=== PATIENT | female | born 1960 | race Caucasian/White ===

== ENCOUNTER 2018-01-09 15:31 | Emergency (ER) | payer OTHER ==
[2018-01-09] MEDS: DIPHTH,PERTUSS(ACELL),TET TOX 0.5 ML DISP.SYRIN. VAX IM (16:25)
== END 2018-01-09 16:41 | disposition home or self-care (01) ==
LOC: ER 15:31
DX: L03.116 Cellulitis of left lower limb (principal); I10 Essential (primary) hypertension; E11.9 Type 2 diabetes mellitus without complications
CPT/HCPCS: 90471; 90715; 99283-25

== ENCOUNTER 2020-11-02 11:52 | Emergency (ER) | payer OTHER ==
[~2020-11-02] VITALS: Ht 154.9 cm; Wt 100.0 kg
[~2020-11-02 11:52] MED LIST: ATOR20TA58 PO; CLIN150C15 PO; INSU100V8 SQ; LISI10TA16 PO; METF500T PO; OMEP20TA63 PO; PIOG15TA42 PO; PIRO20CA PO; SITA100T PO
[2020-11-02 12:25] VITALS: BP 130/68
[2020-11-02] MEDS ORDERED: LIDOCAINE 1% Multi-Dose 20 ML VIAL. INJ ONE (13:00)
[2020-11-02] MEDS ORDERED: CHLO15MO2 PO (13:39)
--- NOTE | 2020-11-02 13:39 | PHYS DOC ---
Past Medical History Past Medical History: Asthma, Diabetes-Type II, Hypertension Past Surgical History: , Hysterectomy Smoking Status: Never Smoker Alcohol Use: Occasionally Drug Use: None General Adult EDM: Chief Complaint: DENTAL PROBLEM HPI: HPI: Patient is a 59 year old Female who presents with right lower mouth facial abscess that is hard and swollen is about quarter sized with slight redness to the outside of the face just to the abscess area. This has been going on since this past Wednesday. She denies fever, dizziness, headache. Patient does have several broken teeth, several missing teeth and dental caries. She states she needs to have them all completely removed. She states she does not have a dentist. She rates her pain a 10 out of 10 throbbing pain at this time. Review of Systems: Review of Systems: Constitutional: Denies fever or chills. [] Eyes: Denies change in visual acuity. [] HENT: Denies nasal congestion or sore throat. +Dental abscess, +many dental caries, + dental pain [] Respiratory: Denies cough or shortness of breath. [] Cardiovascular: Denies chest pain or edema. [] GI: Denies abdominal pain, nausea, vomiting, bloody stools or diarrhea. [] : Denies dysuria. [] Musculoskeletal: Denies back pain or joint pain. [] Integument: Denies rash. +Dental abscess with pink circular over where the abscess is to the outer right lower cheek [] Neurologic: Denies headache, focal weakness or sensory changes. [] Endocrine: Denies polyuria or polydipsia. [] Lymphatic: Denies swollen glands. [] Psychiatric: Denies depression or anxiety. [] Heart Score: C/O Chest Pain: No Risk Factors: Risk Factors: DM, Current or recent (<one month) smoker, HTN, HLP, family history of CAD, obesity. Risk Scores: Score 0 - 3: 2.5% MACE over next 6 weeks - Discharge Home Score 4 - 6: 20.3% MACE over next 6 weeks - Admit for Clinical Observation Score 7 - 10: 72.7% MACE over next 6 weeks - Early Invasive Strategies Current Medications: Current Medications Medications (Trade) Dose Ordered Sig/Altagracia Start Time Stop Time Status Last Admin Dose Admin Lidocaine HCl (Lidocaine 1% 20ml Vial) 20 ml 1X ONCE 11/02/20 13:00 11/02/20 13:03 DC 11/02/20 13:10 20 ML Allergies: Allergies: Allergies Coded Allergies Type Severity Reaction Last Updated Verified No Known Drug Allergies 01/09/18 No Physical Exam: PE: Constitutional: Well developed, well nourished, no acute distress, non-toxic appearance. [] HENT: Normocephalic, atraumatic, bilateral external ears normal, oropharynx moist, no oral exudates, nose normal. Many missing, broken and dental caries. gumline reddened. No drainage seen inside the mouth. [] Eyes: PERRLA, EOMI, conjunctiva normal, no discharge. [] Neck: Normal range of motion, no tenderness, supple, no stridor. [] Cardiovascular:Heart rate regular rhythm, no murmur [] Lungs & Thorax: Bilateral breath sounds clear to auscultation [] Abdomen: Bowel sounds normal, soft, no tenderness, no masses, no pulsatile masses. [] Skin: Warm, dry, no erythema, no rash. Reddened circular area size of a quarter to the outside of the right lower cheek with a dental abscess is located. Tenderness. [] Back: No tenderness, no CVA tenderness. [] Extremities: No tenderness, no cyanosis, no clubbing, ROM intact, no edema. [] Neurologic: Alert and oriented X 3, normal motor function, normal sensory function, no focal deficits noted. [] Psychologic: Affect normal, judgement normal, mood normal. [] Current Patient Data: Vital Signs: Vital Signs Date Time Temp Pulse Resp B/P (MAP) Pulse Ox O2 Delivery O2 Flow Rate FiO2 11/02/20 12:25 98.1 100 130/68 (88) 98.1 11/02/20 11:55 22 Room Air EKG: EKG: [] Radiology/Procedures: Radiology/Procedures: [] Course & Med Decision Making: Course & Med Decision Making Pertinent Labs and Imaging studies reviewed. (See chart for details) See HPI. Alert and oriented x4. Speaks in full clear sentences. No trismus. Afebrile. Skin pink warm and dry except for what was described in the HPI. The pink area over the abscess to the outer right lower cheek in a circular shape is present. Abscess is hard and tender. I have ordered lidocaine. Dr. Ludmila to perform I&D to drain the abscess. Patient will be sent home on antibiotics. I will also give her dental resources. She is nonseptic appearing. I&D Location: Lower right inner mouth Anesthesia: 1% lidocaine Scalpel size: #11 Skin: [place] to the outside no cellulitis to the inside of the mucosa Drainage: Purulent Packing: None Patient tolerated the procedure well with no complications. The area was prepped and draped in usual sterile fashion. Area was cleaned with chloehexidine prior to procedure. Return for signs and symptoms of infection education given. Patient to return in 48 hours for wound recheck. [] Dragon Disclaimer: Dragon Disclaimer: This electronic medical record was generated, in whole or in part, using a voice recognition dictation system. Departure Departure Impression: Primary Impression: Dental abscess Additional Impression: Facial swelling Disposition: HOME SELF CARE/HOMELESS Condition: STABLE Referrals: UNKNOWN PCP NAME (PCP) Patient Instructions: Dental Abscess, Dental Caries Additional Instructions: Follow-up with a dentist as soon as possible. Take medication as prescribed and with food. Take medication as prescribed and with food. Remember pain medication will make you sleepy. Scripts Hydrocodone Bit/Acetaminophen (HYDROCODONE-APAP 5-325 ) 1 Tab Tablet 1 TAB PO PRN Q6HRS PRN for PAIN, #15 TAB 0 Refills Prov: ELIZABETH RICHARD SLURRY MAN 11/02/20 Amoxicillin/Potassium Clav (AUGMENTIN 875-125 TABLET) 1 Each Tablet 1 TAB PO BID for 10 Days, #20 TAB 0 Refills Prov: ELIZABETH RICHARD SLURRY MAN 11/02/20 Chlorhexidine Gluconate (PERIDEX) 15 Ml Mouthwash 15-30 ML PO TID for 8 Days, #473 ML 0 Refills Prov: ELIZABETH RICHARD SLURRY MAN 11/02/20 ELIZABETH RICHARD APRN Nov 02, 2020 13:39
[2020-11-02] MEDS ORDERED: AMOX1TAB61 PO (13:47)
[2020-11-02] MEDS ORDERED: HYDR-2761 PO (13:47)
[2020-11-02] MEDS ORDERED: HYDROcodone/APAP 5/325MG 1 TAB TABLET PO ONE (14:15)
== END 2020-11-02 15:15 | disposition home or self-care (01) ==
LOC: ER 11:52
DX: K04.7 Periapical abscess without sinus (principal); E11.9 Type 2 diabetes mellitus without complications; I10 Essential (primary) hypertension; J45.909 Unspecified asthma, uncomplicated
CPT/HCPCS: 41800; 99284; J3490

== ENCOUNTER 2021-02-10 14:13 | Emergency (ER) | payer OTHER ==
[~2021-02-10] VITALS: Ht 154.9 cm; Wt 90.9 kg
[~2021-02-10 14:13] MED LIST changes: +AMOX1TAB61 PO; +CHLO15MO2 PO; +HYDR-2761 PO
[2021-02-10] MEDS ORDERED: NAPROXEN 500 MG TABLET PO STA (16:11)
[2021-02-10] MEDS ORDERED: CYCLOBENZAPRINE 10 MG TABLET. PO ONE (16:15)
[2021-02-10] MEDS ORDERED: HYDROcodone/APAP 5/325MG 1 TAB TABLET PO ONE (16:15)
[2021-02-10] MEDS ORDERED: CYCL10TA2 PO (16:33)
[2021-02-10] MEDS ORDERED: HYDR-2761 PO ×2 (16:33→16:39)
[2021-02-10] MEDS ORDERED: IBUP-1007 PO (16:33)
--- NOTE | 2021-02-10 16:37 | PHYS DOC ---
Past Medical History Past Medical History: Asthma, Diabetes-Type II, Hypertension Past Surgical History: , Hysterectomy Smoking Status: Former Smoker Alcohol Use: Occasionally Drug Use: None General Adult EDM: Chief Complaint: BACK PAIN OR INJURY HPI: HPI: Patient is a 60 year old female with history of diabetes type 2, hypertension, asthma, arthritis, who presents to the ED today complaining of 10 out of 10 chronic sharp bilateral knee pain, low back pain. Patient states symptoms are intermittent. She states she went today to see the orthopedic doctor and did not have a Medicaid card so they sent her to the ED to be evaluated. Patient states she is out of her pain medicine. Denies any trauma. Denies any numbness or tingling to bilateral lower extremity but expresses pain radiating to the right lower extremity that she states is chronic. States the pain is worse on ambulation. Review of Systems: Review of Systems: Constitutional: Denies fever or chills. [] : Denies dysuria. [] Musculoskeletal: Reports bilateral low back pain radiating to the right lower extremity, lateral knee pain Integument: Denies rash. [] Neurologic: Denies headache, focal weakness or sensory changes. [] Psychiatric: Denies depression or anxiety. [] Heart Score: C/O Chest Pain: N/A Risk Factors: Risk Factors: DM, Current or recent (<one month) smoker, HTN, HLP, family history of CAD, obesity. Risk Scores: Score 0 - 3: 2.5% MACE over next 6 weeks - Discharge Home Score 4 - 6: 20.3% MACE over next 6 weeks - Admit for Clinical Observation Score 7 - 10: 72.7% MACE over next 6 weeks - Early Invasive Strategies Current Medications: Current Medications Medications (Trade) Dose Ordered Sig/Altagracia Start Time Stop Time Status Last Admin Dose Admin Acetaminophen/ Hydrocodone Bitart (Lortab 5/325) 1 tab 1X ONCE 02/10/21 16:15 02/10/21 16:16 DC Cyclobenzaprine HCl (Flexeril) 10 mg 1X ONCE 02/10/21 16:15 02/10/21 16:16 DC Naproxen (Naprosyn) 500 mg 1X STAT 02/10/21 16:11 02/10/21 16:13 DC Allergies: Allergies: Allergies Coded Allergies Type Severity Reaction Last Updated Verified No Known Drug Allergies 01/09/18 No Physical Exam: PE: Constitutional: Well developed, well nourished, no acute distress, non-toxic appearance. [] Abdomen: Bowel sounds normal, soft, no tenderness, no masses, no pulsatile masses. [] Skin: Warm, dry, no erythema, no rash. [] Back: Diffuse paraspinal muscle tenderness bilateral lumbar spine, no midline lumbar spine tenderness, no CVA tenderness. Positive straight leg raise At approximately 30 degrees Extremities: Bilateral knees with knee braces, tenderness diffusely to the knee, range of motion is intact bilateral lower extremities, no cyanosis, no clubbing, +2 bilateral Neurologic: Alert and oriented X 3, normal motor function, normal sensory function, no focal deficits noted. [] Psychologic: Affect normal, judgement normal, mood normal. [] Current Patient Data: Vital Signs: Vital Signs Date Time Temp Pulse Resp B/P (MAP) Pulse Ox O2 Delivery O2 Flow Rate FiO2 02/10/21 15:13 98.7 97 18 156/85 (108) 95 Room Air 98.7 EKG: EKG: [] Radiology/Procedures: Radiology/Procedures: [] Course & Med Decision Making: Course & Med Decision Making Pertinent Labs and Imaging studies reviewed. (See chart for details) This a 60-year-old female patient presenting to the ED today with chronic knee and back pain. She went to Dr. Kohli's office today but she did not have a Medicaid card so she did not get seen. She is also requesting a list of new primary care doctors, she does not want to be seen by her doctor at because she apparently asked patient about her sex life. Patient felt the question was insulting. Will provide her with a new list of doctors. I recommended she gets another follow-up appointment with . Monica Disclaimer: Monica Disclaimer: This electronic medical record was generated, in whole or in part, using a voice recognition dictation system. Departure Departure Impression: Primary Impression: Chronic low back pain Qualified Codes: M54.41 - Lumbago with sciatica, right side; G89.29 - Other chronic pain Additional Impression: Chronic knee pain Qualified Codes: M25.561 - Pain in right knee; M25.562 - Pain in left knee; G89.29 - Other chronic pain Disposition: 01 HOME / SELF CARE / HOMELESS Condition: STABLE Referrals: UNKNOWN PCP NAME (PCP) follow up with your doctor in 1 week JAQUI KOHLI MD follow up in one week Patient Instructions: Back Pain, Adult, Knee Pain, [id number] Additional Instructions: Please try and establish care with a primary care doctor from the list provided. Please call Dr. Kohli's office tomorrow and set up another follow-up appointment. Be sure you take your medicaid card Scripts Hydrocodone Bit/Acetaminophen (HYDROCODONE-APAP 5-325 ) 1 Tab Tablet 1 TAB PO PRN Q6HRS PRN for PAIN, #10 TAB 0 Refills Prov: FADI NG APRN 02/10/21 Ibuprofen (IBUPROFEN) 600 Mg Tablet 600 MG PO PRN Q6HRS PRN for INFLAMMATION, #60 TAB Prov: FADI NG APRN 02/10/21 Cyclobenzaprine Hcl (CYCLOBENZAPRINE HCL) 10 Mg Tablet 1 TAB PO TID, #30 TAB Prov: FADI NG APRN 02/10/21 FADI NG APRN Feb 10, 2021 16:36
[2021-02-10 17:58] VITALS: BP 146/81
== END 2021-02-10 16:59 | disposition home or self-care (01) ==
LOC: ER 14:13
DX: M54.41 Lumbago with sciatica, right side (principal); G89.29 Other chronic pain; M25.561 Pain in right knee; M25.562 Pain in left knee; J45.909 Unspecified asthma, uncomplicated; E11.9 Type 2 diabetes mellitus without complications; I10 Essential (primary) hypertension; M19.90 Unspecified osteoarthritis, unspecified site; Z98.890 Other specified postprocedural states; Z90.710 Acquired absence of both cervix and uterus
CPT/HCPCS: 99284

== ENCOUNTER → 2021-06-05 | Outpatient (CLI) | payer OTHER ==
[~2021-06-05] MED LIST changes: -CLIN150C15 PO; +CLIN150C16 PO; +CYCL10TA2 PO; +IBUP-1007 PO
--- NOTE | 2021-06-05 15:20 | RAD ---
CT LOWER EXTREMITY WITHOUT CONTRAST dated 06/05/2021 2:10 PM Indication:Reason: osteoathritis / Spl. Instructions: / History: Comparison: Prior radiographs of 04/14/2021 and 05/04/2020. Technique: Helical CT images were performed through the region of the hips, knees and ankles for plan dulce implant placement. Sagittal and coronal reconstructions were obtained. One or more of the following individualized dose reduction techniques were utilized for this examinat ion: 1. Automated exposure control 2. Adjustment of the mA and/or kV according to patient size 3. Use of iterative reconstruction technique Findings: Images of the hips show no acute abnormality. There is suggestion of mild osteoarthritis of both hip joints. No destructive process is seen. There is no evidence of soft tissue abnormality. Views of the knees show evidence of severe osteoarthritis bilaterally. There are prominent large melida l osteophytes. There is severe joint space narrowing on each side with sclerosis and subchondral cyst formation. There is evidence of a bony defect of the lateral tibial plateau on the right extending i nto a large subcortical cyst. This also appears to have broken through the posterior cortex and there is suggestion of cystic components extending back into the soft tissues behind the knee and proximal tibia. There are multiple loose fragments in this region. Loose bodies are also suggested medially o n the right. On the left side, several loose bodies are present medially and a few laterally. There a re moderate bilateral joint effusions. No soft tissue mass is seen. Views of the ankles show no fracture or other acute abnormality. There appear to be some arthritic ch anges at both tibiotalar joints, with subchondral cyst formation and sclerosis. No destructive proces s is identified. IMPRESSION: There is mild osteoarthritis at the hips and ankles. Severe osteoarthritis is seen at the knees. Electronically signed by: Jose Angel Montes Jr., MD (06/05/2021 3:18 PM) [id number]
== END ==
LOC: CT 13:22
PROVIDERS: ATTEND Orthopaedic Surgery
DX: M17.0 Bilateral primary osteoarthritis of knee (principal); M19.072 Primary osteoarthritis, left ankle and foot; M19.071 Primary osteoarthritis, right ankle and foot; M85.68 Other cyst of bone, other site; M21.869 Other specified acquired deformities of unspecified lower leg
CPT/HCPCS: 73700-50